=== PATIENT | female | born 1945 | race Caucasian/White ===

== ENCOUNTER 2017-03-14 22:31 | Emergency (ER) | payer OTHER ==
--- NOTE | ~2017-03-14 | CT71 ---
[facility] A Service of [facility] RADIOLOGY TEXT RESULTS PATIENT: ZAKI NELSON LOCATION: [place] : 44 UNIT #: [id number] AGE: [address]: Brooke Henson MD SEX: F ORDER DR: [id number] [address] [id number] [facility]. [place], [place] [address] [id number] E MR#: [id number] Acc #: [id number] NAME: ZAKI NELSON. : 1945 SEX: F STUDY DATE/TIME: 03/14/2017 22:40 UNIT: [facility] ROOM: STUDY DESCRIPTION: CT Head Wo Contrast Attending Physician: Brooke Henson M.D. Ordering Physician: Brooke Henson M.D. Primary Care Physician: Arlette Berry M.D. MEDICAL IMAGING REPORT This report is preliminary unless electronic signature is present EXAM CT head without IV contrast COMPARISON April 13, 2013 INDICATIONS 71-year-old female with dizziness and elevated blood pressure for approximately [address] imaging of the head was performed. This CT exam was performed with one or more of the following radiation dose reduction techniques: Automatic exposure control, adjustment of mA and/or kV according to patient size, and iterative reconstruction. Visualized mastoid air cells, middle ears and paranasal sinuses are well aerated. No acute fractures or suspicious osseous lesions. Mild cerebral and cerebellar volume loss, grossly stable. No abnormal extraaxial fluid collection or mass effect. No acute intracranial hemorrhage. Minimal chronic small vessel ischemic changes within the bifrontal white matter. No evidence of acute ischemia. IMPRESSION No acute intracranial abnormality. Stable mild cerebral and cerebellar volume loss as well as minimal stable chronic small vessel ischemic changes. Dictated by... Gaudencio Oates M.D. THIS IS AN ELECTRONICALLY VERIFIED REPORT [facility] A Service of [facility] RADIOLOGY TEXT RESULTS PATIENT: ZAKI NELSON LOCATION: [place] : 44 UNIT #: [id number] AGE: [address]: Brooke Henson MD SEX: F ORDER DR: Gaudencio Oates M.D. at 03/19/2017 7:24 PM BLM/psc TD: 03/15/2017 03:02 JOB #: [id number] MEDICAL IMAGING REPORT Page 1 of 1 COPY
--- NOTE | ~2017-03-14 | EKG ---
PATIENT: ZAKI NELSON UNIT #: [id number] Ventricular Rate: 61 BPM Atrial Rate: 61 BPM P-R Interval: 170 ms QRS Duration: 76 ms Q-T Interval: 410 ms QTC Calculation(Bezet): 412 ms P [place]: 84 degrees Calculated R [place]: 72 degrees Calculated T [place]: 74 degrees Diagnosis Line: Normal sinus rhythm Diagnosis Line: Normal ECG Diagnosis Line: When compared with ECG of 18-JAN-2014 16:20, Diagnosis Line: No significant change was found Diagnosis Line: Confirmed by ALEE DUDLEY MD ([id number]) on 03/15/2017 Diagnosis Line: 9:41:02 AM INTERPRETING MD: OCTAVIA CASTILLO
[2017-03-14 21:29] LABS: BASOPHIL# 0.1 X10e3 (0-0.3); BASOPHIL% 1.4 % (0-2.5); EOSINOPHIL# 0.2 X10e3 (0-0.7); EOSINOPHIL% 2.4 % (0.0-7.0); HEMATOCRIT 44.2 % (35.0-45.0); HEMOGLOBIN 14.7 gm/dL (12.0-16.0); LYMPHOCYTE# 2.6 X10e3 (1.0-3.5); LYMPHOCYTE% 33.1 % (17.0-45.0); MEAN CELL VOLUME 84.6 FL (83-96); MEAN CORPUSCULAR HEMOGLOBIN 28.1 PG (28-34); MEAN CORPUSCULAR HGB CONC 33.2 g/dL (30-36); MEAN PLATELET VOLUME 7.5 FL (6.5-11.5); MONOCYTE# 0.6 X10e3 (0-1.0); MONOCYTE% 7.7 % (3.0-12.0); NEUTROPHIL# 4.3 X10e3 (1.5-7.1); NEUTROPHIL% 55.4 % (40-75); PLATELET COUNT 298 X10e3 (140-420); RED BLOOD COUNT 5.22 X10e (3.90-5.30); RED CELL DISTRIBUTION WIDTH 14.9 % (11.0-15.5); WHITE BLOOD COUNT 7.7 X10e3 (4.0-10.5)
[2017-03-14 21:31] LABS: DIFF IND NO
[2017-03-14 22:03] LABS: ALBUMIN SERUM 4.3 g/dL (3.5-5.0); BILIRUBIN, DIRECT 0.1 mg/dL (0.0-0.2); BILIRUBIN,INDIRECT 0.5 mg/dL (0.0-0.9); BILIRUBIN,TOTAL 0.6 mg/dL (0.2-2.0); BUN/CREATININE RATIO 12.85; CREATININE SERUM 0.7 mg/dL (0.6-1.4); GLOM FILT RATE Estimated 86.6 mL/min (>60); POTASSIUM 3.7 mmol/L (3.5-5.1)
[2017-03-14 22:10] LABS: POC - CKMB <1.0 ng/mL (0.0-7.9); POC - TROPONIN <0.05 ng/mL (<=0.05)
[~2017-03-14 22:31] MED LIST: ANTIVERT PO
[2017-03-14 22:51] LABS: URINE SOURCE CLEAN CATCH
[2017-03-14 23:01] LABS: URINE APPEARANCE CLEAR; URINE BILIRUBIN NEG (NEG); URINE BLOOD NEG (NEG); URINE COLOR YELLOW; URINE GLUCOSE NEG (NEG); URINE KETONE NEG (NEG); URINE LEUKOCYTE ESTERASE TRACE (NEG); URINE NITRATE NEG (NEG); URINE PROTEIN NEG (NEG); URINE SPECIFIC GRAVITY 1.005 (1.003-1.035); URINE UROBILINOGEN 0.2 MG/DL (NEG)
[2017-03-14 23:04] LABS: URBCS1 AUWI 0-2 /[HPF] (0-2); URINE BACTERIA AUWI NEG (NEGATIVE); URINE SQUAMOUS EPITHELIAL CELL NONE SEEN /[HPF]
[2017-03-14 23:05] LABS: CULTURE INDICATED? NO
[2017-03-14 23:28] LABS: POC - CKMB <1.0 ng/mL (0.0-7.9); POC - TROPONIN <0.05 ng/mL (<=0.05)
[2017-03-14 23:41] LABS: PROTHROMBIN TIME (PATIENT) 21.4 SECONDS (9.6-11.5)
== END 2017-03-15 00:31 | disposition home or self-care (01) ==
LOC: CED 22:31
PROVIDERS: Student in an Organized Health Care Education/Training Program
DX: I10 Essential (primary) hypertension (principal); E78.5 Hyperlipidemia, unspecified; J44.9 Chronic obstructive pulmonary disease, unspecified; Z88.5 Allergy status to narcotic agent; Z79.01 Long term (current) use of anticoagulants
CPT/HCPCS: 36415; 70450; 80048; 80076; 81003; 82553; 84484; 85025; 85610; 93005; 99284

== ENCOUNTER 2017-04-12 21:21 | Observation (INO) | payer OTHER ==
--- NOTE | ~2017-04-12 | CT4 ---
[facility] A Service of [facility] RADIOLOGY TEXT RESULTS PATIENT: ZAKI NELSON LOCATION: [facility] 470 : 44 UNIT #: [id number] AGE: [address]: Erickson More MD SEX: F ORDER DR: [id number] [facility] [address] [place], [place] [address] [id number] I MR#: [id number] Acc #: [id number] NAME: ZAKI NELSON : 1945 SEX: F STUDY DATE/TIME: 04/13/2017 2:10 UNIT: [facility] ROOM: [facility] STUDY DESCRIPTION: CT Abd and Pelv Wo Cont Attending Physician: Erickson More M.D. Referring Physician: Erickson More M.D. Ordering Physician: Rosalinda Leos M.D. Primary Care Physician: Arlette Berry M.D. MEDICAL IMAGING REPORT This report is preliminary unless electronic signature is present EXAM CT abdomen and pelvis without contrast. INDICATION Left-sided abdominal pain today. PROCEDURE Unenhanced CT of the abdomen and pelvis. This CT exam was performed with one or more of the following radiation dose reduction techniques: automatic exposure control, adjustment of mA and/or kV according to patient size, and iterative reconstruction. COMPARISON None FINDINGS ABDOMEN WITHOUT CONTRAST: Included lung bases are predominately clear. The liver, spleen, adrenal glands, pancreas unremarkable. Previous cholecystectomy. 4 cm cyst in the right kidney. The bowel loops are nondilated. Sigmoid diverticula. Previous postsurgical change in the sigmoid colon. There is a focally inflamed diverticulum in the mid descending colon. No evidence for an abscess. Appendix normal. PELVIS WITHOUT CONTRAST: No pelvic mass or fluid. No aggressive appearing bone lesion. There is a wide abdominal hernia at the midline lower abdomen that measures 10.4 cm in diameter. Uncomplicated loops of small bowel extend into the hernia sac. IMPRESSION 1. Focally inflamed diverticulum in the mid descending colon. No evidence for abscess. [facility] A Service of [facility] RADIOLOGY TEXT RESULTS PATIENT: ZAKI NELSON LOCATION: [facility] 01 : 44 UNIT #: [id number] AGE: [address]: Erickson More MD SEX: F ORDER DR: 2. Other incidental findings are detailed above. Dictated by... Cliff Healy M.D. THIS IS AN ELECTRONICALLY VERIFIED REPORT Cliff Healy M.D. at 04/17/2017 7:22 AM SHEY/augusto TD: 04/13/2017 10:14 JOB #: [id number] MEDICAL IMAGING REPORT Page 1 of 1 COPY
--- NOTE | ~2017-04-12 | CO ---
Unit #: [id number] #: [id number] Patient: ZAKI NELSON [id number] [address] [address] [id number] I MR#: [id number] NAME: ZAKI NELSON ROOM: [facility] Age: 71 Sex: F Admission Date: 04/13/2017 : 1945 Attending Physician: Erickson More M.D. Primary Care Physician: Arlette Berry M.D. Consultation Date: 04/13/2017 CONSULTATION REPORT BRIEF HISTORY The patient is a 71-year-old lady who presents with the less than 24-hour history of left lower quadrant abdominal pain. Described as crampy, nonradiating. Some nausea, no vomiting, no diarrhea, no change in bowel habits, no fevers or chills or trauma. She does have a history of diverticular disease for which she had a colon resection back in 1999 with colostomy and subsequent reversal. PAST MEDICAL HISTORY 1. Hypertension. 2. Respiratory dysfunction. 3. Bleeding disorder. 4. COPD. PAST SURGICAL HISTORY 1. Thyroidectomy. 2. Hysterectomy. 3. Colostomy. 4. Colostomy reversal. HOME MEDICATIONS 1. Coumadin. 2. Synthroid. 3. Hydrochlorothiazide. 4. Metoprolol. 5. Valium. 6. Symbicort. 7. ProAir. ALLERGIES SOCIAL HISTORY No smoking, no alcohol. FAMILY HISTORY Negative for GI malignancy. REVIEW OF SYSTEMS No cardiopulmonary complaints at this time, else 10 systems were reviewed and negative. PHYSICAL EXAMINATION Unit #: [id number] #: [id number] Patient: ZAKI NELSON VITAL SIGNS: Currently afebrile. GENERAL: She is awake, alert, and appropriate. HEENT: Unremarkable. NECK: Supple. No JVD. Trachea midline. LUNGS: Clear to auscultation bilaterally. Breath sounds symmetric. HEART: Regular rate and rhythm. ABDOMEN: Soft. Mildly tender in the right upper quadrant but no rebound, no mass palpable. EXTREMITIES: No clubbing, cyanosis, or edema. DIAGNOSTIC STUDIES LABORATORY: Normal white count. Chemistries are normal. IMAGING: CT scan shows inflammation of the colon, no abscess. ASSESSMENT AND PLAN Colitis versus diverticulitis. PLAN 1. Recommend antibiotics, bowel rest, and reassess. 2. Will review recent colonoscopy which she reported as normal. Dictated by... Yu Zafar/aristeo TD: 04/13/2017 15:15 JOB #: [id number] CONSULTATION REPORT Page 1 of 1 X Erickson More MD X CONSULTATION REPORT
[2017-04-13 01:57] LABS: URINE SOURCE CLEAN CATCH
[2017-04-13 01:59] LABS: BASOPHIL# 0.1 X10e3 (0-0.3); BASOPHIL% 0.8 % (0-2.5); EOSINOPHIL# 0.1 X10e3 (0-0.7); EOSINOPHIL% 0.8 % (0.0-7.0); HEMATOCRIT 42.9 % (35.0-45.0); LYMPHOCYTE# 2.3 X10e3 (1.0-3.5); LYMPHOCYTE% 21.7 % (17.0-45.0); MEAN CELL VOLUME 84.8 FL (83-96); MEAN CORPUSCULAR HEMOGLOBIN 27.7 PG (28-34); MEAN CORPUSCULAR HGB CONC 32.6 g/dL (30-36); MEAN PLATELET VOLUME 7.7 FL (6.5-11.5); MONOCYTE% 9.1 % (3.0-12.0); NEUTROPHIL# 7.1 X10e3 (1.5-7.1); NEUTROPHIL% 67.6 % (40-75); PLATELET COUNT 302 X10e3 (140-420); RED BLOOD COUNT 5.06 X10e (3.90-5.30); RED CELL DISTRIBUTION WIDTH 14.9 % (11.0-15.5); WHITE BLOOD COUNT 10.5 X10e3 (4.0-10.5)
[2017-04-13 02:12] LABS: DIFF IND NO
[2017-04-13 02:13] LABS: URINE APPEARANCE CLEAR; URINE BILIRUBIN NEG (NEG); URINE BLOOD NEG (NEG); URINE COLOR YELLOW; URINE GLUCOSE NEG (NEG); URINE KETONE NEG (NEG); URINE LEUKOCYTE ESTERASE NEG (NEG); URINE NITRATE NEG (NEG); URINE PH 7.5 (5-8); URINE PROTEIN NEG (NEG); URINE SPECIFIC GRAVITY 1.008 (1.003-1.035); URINE UROBILINOGEN 0.2 MG/DL (NEG)
[2017-04-13 02:25] LABS: BILIRUBIN, DIRECT 0.1 mg/dL (0.0-0.2); BILIRUBIN,INDIRECT 1.3 mg/dL (0.0-0.9); BILIRUBIN,TOTAL 1.4 mg/dL (0.2-2.0); BUN/CREATININE RATIO 18.57; CALCIUM SERUM 8.8 mg/dL (8.4-10.2); CREATININE SERUM 0.7 mg/dL (0.6-1.4); CULTURE INDICATED? YES; GLOM FILT RATE Estimated 86.6 mL/min (>60); POTASSIUM 3.6 mmol/L (3.5-5.1); PROTEIN TOTAL SERUM 7.6 g/dL (6.0-8.3)
[2017-04-13 03:43] LABS: INR 2.2; PARTIAL THROMBOPLASTIN TIME 37.8 SECONDS (23.5-31.3); PROTHROMBIN TIME (PATIENT) 24.1 SECONDS (9.6-11.5)
[2017-04-13] MEDS ORDERED: COUMADIN4 MG PO (04:12)
[2017-04-13] MEDS ORDERED: SYNTHROID PO (04:12)
[2017-04-13] MEDS ORDERED: ZETIA PO (04:13)
[2017-04-13] MEDS ORDERED: METOPROLOL TAR25 MG PO (04:14)
[2017-04-13] MEDS ORDERED: HYDROCHLOROTH12.5 M1 PO (04:14)
[2017-04-13] MEDS ORDERED: DIAZEPAM PO (04:15)
[2017-04-13] MEDS ORDERED: SYMBICORT INH (04:16)
[2017-04-13] MEDS ORDERED: PROAIR HFA8.5 GM INH (04:16)
[2017-04-13] MEDS ORDERED: LIPITOR PO (11:06)
[2017-04-14 03:38] LABS: HEMATOCRIT 37.6 % (35.0-45.0); HEMOGLOBIN 12.3 gm/dL (12.0-16.0); MEAN CELL VOLUME 85.3 FL (83-96); MEAN CORPUSCULAR HEMOGLOBIN 27.8 PG (28-34); MEAN CORPUSCULAR HGB CONC 32.6 g/dL (30-36); MEAN PLATELET VOLUME 7.9 FL (6.5-11.5); RED BLOOD COUNT 4.4 X10e (3.90-5.30); RED CELL DISTRIBUTION WIDTH 14.8 % (11.0-15.5); WHITE BLOOD COUNT 9.8 X10e3 (4.0-10.5)
[2017-04-14 03:47] LABS: INR 2.2; PROTHROMBIN TIME (PATIENT) 24.1 SECONDS (9.6-11.5)
[2017-04-14 04:02] LABS: BUN/CREATININE RATIO 16.66; CALCIUM SERUM 8.7 mg/dL (8.4-10.2); CREATININE SERUM 0.6 mg/dL (0.6-1.4); GLOM FILT RATE Estimated 91.1 mL/min (>60); POTASSIUM 3.7 mmol/L (3.5-5.1)
[2017-04-14] MEDS ORDERED: FLAGYL PO (12:11)
[2017-04-14] MEDS ORDERED: KEFLEX500 MG PO (12:14)
== END 2017-04-14 15:25 | disposition home or self-care (01) ==
LOC: CED 21:21 → CFTX 21:21 → CED 23:55 → C4C 04-13 06:30 → CEDOF 04-13 06:30 → CED 04-13 06:43 → CEDOF 04-13 08:55 → C4C 04-13 08:55
PROVIDERS: Emergency Medicine; Surgery
DX: K57.32 Diverticulitis of large intestine without perforation or abscess without bleeding (principal); Z90.49 Acquired absence of other specified parts of digestive tract; I10 Essential (primary) hypertension; J44.9 Chronic obstructive pulmonary disease, unspecified; E89.0 Postprocedural hypothyroidism; Z90.710 Acquired absence of both cervix and uterus; Z79.01 Long term (current) use of anticoagulants
CPT/HCPCS: 36415; 74176; 80048; 80076; 81003; 83690; 85025; 85027; 85610; 85730; 87086; 94664; 94760; 96361; 96365; 96367; 96374; 96375; 96376; 99285; C9113; G0378; J1200; J1956; J2270; J2405; J2543; J2930

== ENCOUNTER 2017-06-14 13:46 | Emergency (ER) | payer OTHER ==
[~2017-06-14] VITALS: Ht 157.5 cm; Wt 59.0 kg
--- NOTE | ~2017-06-14 | CT4 ---
[facility] A Service of [facility] RADIOLOGY TEXT RESULTS PATIENT: ZAKI NELSON LOCATION: [facility] : 44 UNIT #: [id number] AGE: [address]: Rosalinda Leos MD SEX: F ORDER DR: [id number] [facility] [address] [place], [place] [address] [id number] E MR#: [id number] Acc #: [id number] NAME: ZAKI NELSON : 1945 SEX: F STUDY DATE/TIME: 06/14/2017 UNIT: [facility] ROOM: STUDY DESCRIPTION: CT Abd and Pelv Wo Cont Attending Physician: Rosalinda Leos M.D. Ordering Physician: Jose E Rodriguez M.D. Primary Care Physician: Arlette Berry M.D. MEDICAL IMAGING REPORT This report is preliminary unless electronic signature is present EXAM CT abdomen and pelvis without contrast 06/14/2017 HISTORY Thyroidectomy. Hysterectomy. Colostomy. Colostomy reversal. Cholecystectomy. Clotting disorder. PE. COPD. Diverticulitis. DVT. High cholesterol. Abdomen pain, lower naval area, [address] abdomen and pelvis performed with administration of enteric but not intravenous contrast. Study limited in the absence of intravenous contrast. This CT exam was performed with one or more of the following radiation dose reduction techniques: automatic exposure control, adjustment of mA and/or kV according to patient size, and iterative reconstruction. COMPARISON STUDIES 04/13/2017. FINDINGS Emphysema at lung bases. Linear scarring at lung bases. Heart normal in size. Liver unremarkable. Status post cholecystectomy. No biliary obstruction. Spleen, pancreas, adrenal glands unremarkable. Left kidney unremarkable. Right renal cyst unchanged. No acute right renal findings. CT PELVIS: No inguinal adenopathy. Urinary bladder unremarkable. Status post hysterectomy. No suspicious adnexal structures. No pelvic fluid collection. Moderate hiatal hernia, more pronounced than on prior study. No complication. Remainder of visualized esophagus and stomach unremarkable. Small bowel shows extension of small bowel loops into an anterior-inferior midline abdominal wall hernia. The hernia sac measures [facility] A Service of [facility] RADIOLOGY TEXT RESULTS PATIENT: ZAKI NELSON [id number] [birth year] UNIT #: [id number] AGE: [address]: Rosalinda Leos MD SEX: F ORDER DR: approximately 5.2 cm x 2.1 cm x 2.6 cm. There is no evidence of incarceration or obstruction. No inflammatory change in the hernia sac. The appendix was normal. Colon shows extensive colonic diverticulosis. Previously seen, focally inflamed diverticulum in the mid-descending colon shows resolution of findings on today's examination. No evidence of acute diverticulitis at this time. There is evidence of prior sigmoid resection and re-anastomosis. No abnormal soft tissue. The anterior abdominal wall superficial to the above-described anterior-inferior hernia sac shows some mild skin thickening and subcutaneous fat stranding/haziness not seen on prior examination. Correlate with any localized cellulitis. There is no subcutaneous air or fluid collection. Atherosclerotic arterial calcifications. Degenerative changes in the spine. No acute appearing bony abnormality. IMPRESSION 1. Extensive colonic diverticulosis without evidence of diverticulitis at this time. Previously seen, focally inflamed diverticulum in the descending colon on study from April 2017 shows resolution of inflammatory change. 2. There is an anterior-inferior pelvic wall midline hernia which contains loops of small bowel. The hernia sac appears unchanged from prior examination. There is no evidence of obstruction or incarceration and there is no inflammatory change within the hernia sac. 3. In the superficial tissues overlying the above described hernia sac, there is new mild skin thickening and subcutaneous fat stranding and haziness. Correlate with any indications of cellulitis at this location. There is no subcutaneous air or fluid collection. 4. Moderate hiatal hernia, more pronounced than on prior study. No complication. 5. Appendix normal. 6. Post-cholecystectomy and hysterectomy. 7. No acute renal findings. 8. Please see remainder of findings in body of report above. Dictated by... Erickson Fong M.D. THIS IS AN ELECTRONICALLY VERIFIED REPORT Erickson Fong M.D. at 06/15/2017 1:21 PM Zully TD: 06/14/2017 18:39 JOB #: [id number] MEDICAL IMAGING REPORT Page 1 of 1 COPY
[~2017-06-14 13:46] MED LIST changes: +COUMADIN4 MG PO; +DIAZEPAM PO; +FLAGYL PO; +HYDROCHLOROTH12.5 M1 PO; +KEFLEX500 MG PO; +LIPITOR PO; +METOPROLOL TAR25 MG PO; +PROAIR HFA8.5 GM INH; +SYMBICORT INH; +SYNTHROID PO; +ZETIA PO
[2017-06-14 14:26] LABS: BASOPHIL# 0.1 X10e3 (0-0.3); BASOPHIL% 0.9 % (0-2.5); EOSINOPHIL# 0.1 X10e3 (0-0.7); EOSINOPHIL% 0.9 % (0.0-7.0); HEMATOCRIT 43.8 % (35.0-45.0); HEMOGLOBIN 14.8 gm/dL (12.0-16.0); LYMPHOCYTE# 1.6 X10e3 (1.0-3.5); LYMPHOCYTE% 20.2 % (17.0-45.0); MEAN CELL VOLUME 84.5 FL (83-96); MEAN CORPUSCULAR HEMOGLOBIN 28.5 PG (28-34); MEAN CORPUSCULAR HGB CONC 33.8 g/dL (30-36); MEAN PLATELET VOLUME 7.3 FL (6.5-11.5); MONOCYTE# 0.7 X10e3 (0-1.0); MONOCYTE% 8.4 % (3.0-12.0); NEUTROPHIL# 5.4 X10e3 (1.5-7.1); NEUTROPHIL% 69.6 % (40-75); PLATELET COUNT 308 X10e3 (140-420); RED BLOOD COUNT 5.19 X10e (3.90-5.30); RED CELL DISTRIBUTION WIDTH 15.5 % (11.0-15.5); WHITE BLOOD COUNT 7.8 X10e3 (4.0-10.5)
[2017-06-14 14:29] LABS: DIFF IND NO
[2017-06-14 14:51] LABS: ALBUMIN SERUM 4.3 g/dL (3.5-5.0); BILIRUBIN, DIRECT 0.1 mg/dL (0.0-0.2); BILIRUBIN,INDIRECT 0.7 mg/dL (0.0-0.9); BILIRUBIN,TOTAL 0.8 mg/dL (0.2-2.0); BUN/CREATININE RATIO 13.75; CALCIUM SERUM 9.2 mg/dL (8.4-10.2); CREATININE SERUM 0.8 mg/dL (0.6-1.4); GLOM FILT RATE Estimated 73.7 mL/min (>60); POTASSIUM 3.7 mmol/L (3.5-5.1); PROTEIN TOTAL SERUM 7.7 g/dL (6.0-8.3)
[2017-06-14 15:11] LABS: INR 1.8; PROTHROMBIN TIME (PATIENT) 20.1 SECONDS (10.0-11.7)
[2017-06-14 17:30] LABS: URINE SOURCE CLEAN CATCH
[2017-06-14 17:35] LABS: URINE APPEARANCE CLEAR; URINE BILIRUBIN NEG (NEG); URINE BLOOD NEG (NEG); URINE COLOR YELLOW; URINE GLUCOSE NORM (NORM); URINE KETONE NEG (NEG); URINE LEUKOCYTE ESTERASE NEG (NEG); URINE NITRATE NEG (NEG); URINE PROTEIN NEG (NEG); URINE SPECIFIC GRAVITY 1.005 (1.003-1.035); URINE UROBILINOGEN NORM (NORM)
[2017-06-14 17:40] LABS: CULTURE INDICATED? NO
== END 2017-06-14 18:44 | disposition home or self-care (01) ==
LOC: CED 13:46
PROVIDERS: Emergency Medicine
DX: R10.30 Lower abdominal pain, unspecified (principal); Z79.899 Other long term (current) drug therapy
CPT/HCPCS: 36415; 74176; 80048; 80076; 81003; 83690; 85025; 85610; 96360; 99284